=== PATIENT | male | born 1985 | race Caucasian/White ===

== ENCOUNTER 2017-12-30 12:24 | Emergency (ER) | payer MEDICAID ==
[~2017-12-30] VITALS: Ht 185.4 cm; Wt 99.8 kg
[~2017-12-30 12:24] MED LIST: AMOCLA500 PO; ANTIBIOTIC; Bactrim Ds Tab1 EACH PO; CEPH500 PO; CLIN300 PO; CRUTCH4 USE; Guaifenesin Dm118 ML PO; Guaifenesin-Co118 ML PO; HYDACE5 PO; HYDCOR1TOA TOP; IBUP800 PO; Naprosyn500 MG PO; OXYACE5T PO; PROM25 PO; RXCEPH500 PO; RXHYDACE PO; RXSULTRIDS PO; SULTRIDS PO; TRIA80TC TOP; Zithromax250 MG PO
[2017-12-30] MEDS ORDERED: Bactrim Ds Tab1 EACH PO (13:03)
[2017-12-30] MEDS ORDERED: Keflex500 MG PO (13:03)
== END 2017-12-30 13:11 | disposition home or self-care (01) ==
LOC: ER 12:24
DX: L03.115 Cellulitis of right lower limb (principal); F17.200 Nicotine dependence, unspecified, uncomplicated; Z86.14 Personal history of Methicillin resistant Staphylococcus aureus infection
CPT/HCPCS: 99282

== ENCOUNTER 2018-02-22 20:20 | Emergency (ER) | payer OTHER ==
[~2018-02-22] VITALS: Ht 185.4 cm; Wt 99.8 kg
[~2018-02-22 20:20] MED LIST changes: +Keflex500 MG PO
[2018-02-22] MEDS ORDERED: Monodox100 MG PO (20:57)
== END 2018-02-22 21:10 | disposition home or self-care (01) ==
LOC: ER 20:20
DX: L55.1 Sunburn of second degree (principal); L03.116 Cellulitis of left lower limb; L03.115 Cellulitis of right lower limb; F17.210 Nicotine dependence, cigarettes, uncomplicated
CPT/HCPCS: 99282

== ENCOUNTER 2021-06-25 06:49 | Emergency (ER) | payer OTHER ==
[~2021-06-25] VITALS: Ht 185.4 cm; Wt 104.3 kg
[~2021-06-25 06:49] MED LIST changes: +Monodox100 MG PO
== END 2021-06-25 10:25 | disposition home or self-care (01) ==
LOC: ER 06:49
DX: S90.822A Blister (nonthermal), left foot, initial encounter (principal); S90.821A Blister (nonthermal), right foot, initial encounter; F17.210 Nicotine dependence, cigarettes, uncomplicated; X58.XXXA Exposure to other specified factors, initial encounter
CPT/HCPCS: 99283

== ENCOUNTER 2022-12-20 17:46 | Inpatient (IN) | payer OTHER ==
[~2022-12-20] VITALS: Ht 182.9 cm; Wt 105.0 kg
[~2022-12-20 17:46] MED LIST changes: +AZIT250 PO; +CEFD300 PO
[2022-12-20 19:11] LABS: BASOPHILS ABSOLUTE AUTO 0.14 K/mm3 (0.00-0.23); BASOPHILS PERCENT AUTO 1 % (0-2); EOSINOPHILS ABSOLUTE AUTO 1.79 K/mm3 (0.00-0.68); EOSINOPHILS PERCENT AUTO 9 % (0-6); Hematocrit 46.1 % (37.0-53.0); Hemoglobin 15.5 g/dL (13.5-17.5); IMMATURE GRAN ABSOLUTE AUTO 0.16 K/mm3 (0.00-0.10); IMMATURE GRAN PERCENT AUTO 1 % (0-1); LYMPHOCYTES ABSOLUTE AUTO 2.22 K/mm3 (0.84-5.20); LYMPHOCYTES PERCENT AUTO 11 % (21-46); MONOCYTES PERCENT AUTO 7 % (4-13); Mean Corpuscular HGB 27.7 pg (26.0-34.0); Mean Corpuscular HGB Conc 33.6 g/dL (31.5-36.5); Mean Corpuscular Volume 82 fL (80-100); NEUTROPHILS PERCENT AUTO 72 % (41-73); Platelet Count 374 K/mm3 (150-400); RDW Coefficient Variation 14.1 % (11.7-14.2); RDW Standard Deviation 42.1 fL (35.1-46.3); White Blood Cell Count 20.51 K/mm3 (4.00-11.30)
[2022-12-20 19:30] LABS: Albumin, Blood 2.9 g/dL (3.4-5.0); Albumin/Globulin Ratio 0.5 (0.8-1.8); Bilirubin, Total 0.7 mg/dL (0.1-1.0); Bun/Creatinine Ratio 16.3 (12.0-20.0); Calcium, Blood 8.9 mg/dL (8.5-10.1); Creatinine, Blood 1.04 mg/dL (0.60-1.20); Potassium, Blood 3.8 mmol/L (3.5-5.5); Total Protein, Blood 8.9 g/dL (6.4-8.2)
[2022-12-20 20:41] LABS: Anti-Xa UFH, PHA Monitoring <0.10 IU/mL; International Normalized Ratio 1.22; Prothrombin Time Results 12.7 Sec (9.7-11.5)
[2022-12-20 23:00] VITALS: BP 140/84
[2022-12-20 23:15] VITALS: BP 108/71
[2022-12-20 23:30] VITALS: BP 122/86
[2022-12-21] VITALS (13 sets, daily range): BP systolic 106–141; BP diastolic 58–111
[2022-12-21 00:40] LABS: U Cannabinoids Screen DETECTED
[2022-12-21 00:41] LABS: U Amphetamine Screen Not Detected; U Barbituate Screen Not Detected; U Benzodiazapine Screen Not Detected; U Buprenorphine Screen Not Detected; U Cocaine Screen Not Detected; U Methadone Screen Not Detected; U Methamphetamine Screen Not Detected; U Opiates Screen Not Detected; U Oxycodone Screen Not Detected; U Phencyclidine Screen Not Detected; U Propoxyphene Screen Not Detected
--- NOTE | 2022-12-21 02:13 | NUR ---
TRANSFER OF CARE NOTE RECEIVED REPORT FROM ED RN BRITTANY RAMIREZ, PT SHORTLY ARRIVED TO PCU 6 ~2250 YESTERDAY PM. ARRIVED VIA GURNEY, PT WAS ABLE TO STAND PIVOT TO HOSPITAL BED. ARRIVED A/Ox4, COOPERTATIVE WITH CARE AND ANSWERS QUESTIONS APPROPRIATELY. MAINTAINED SPO2 >95% ON RA, INCREASED RR RANGING 24-28 WITH C/O SOB. PT ABLE TO SPEAK IN FULL SENTENCES WITHOUT STOPPING HOWEVER. LS DIM IN THE BASES. CARDIAC LEO, ARRIVED IN ST RANGING 100-110'S WITH NO REPORTS OF CP OR PRESSURE. SBP WAS STABLE RANGING 120-140'S. LEGS NOTED TO BE SWOLLEN BILAT. LEFT LEG RED, TENDER, AND WARM TO THE TOUCH. SEE PICS IN CHART. PT NOTED PAIN TO BE 8-10/10 AND IS DESCRIBED A CONSTANT ACHE. BS PRESEENT WITH ABD SOFT/NONTENDER, NO REPORTS OF N/V/D. WILL CONTINUE TO PROCESS MD ORDERS.
[2022-12-21 02:31] LABS: BASOPHILS ABSOLUTE AUTO 0.17 K/mm3 (0.00-0.23); BASOPHILS PERCENT AUTO 1 % (0-2); EOSINOPHILS ABSOLUTE AUTO 2.84 K/mm3 (0.00-0.68); EOSINOPHILS PERCENT AUTO 14 % (0-6); Hematocrit 37.4 % (37.0-53.0); Hemoglobin 12.8 g/dL (13.5-17.5); IMMATURE GRAN ABSOLUTE AUTO 0.13 K/mm3 (0.00-0.10); IMMATURE GRAN PERCENT AUTO 1 % (0-1); LYMPHOCYTES ABSOLUTE AUTO 2.82 K/mm3 (0.84-5.20); LYMPHOCYTES PERCENT AUTO 14 % (21-46); MONOCYTES ABSOLUTE AUTO 1.27 K/mm3 (0.16-1.47); MONOCYTES PERCENT AUTO 6 % (4-13); Mean Corpuscular HGB 27.8 pg (26.0-34.0); Mean Corpuscular HGB Conc 34.2 g/dL (31.5-36.5); Mean Corpuscular Volume 81 fL (80-100); Mean Platelet Volume 10.1 fL (9.1-12.4); NEUTROPHILS ABSOLUTE AUTO 12.79 K/mm3 (1.96-9.15); NEUTROPHILS PERCENT AUTO 64 % (41-73); Platelet Count 298 K/mm3 (150-400); RDW Standard Deviation 41.5 fL (35.1-46.3); Red Blood Cell Count 4.61 M/mm3 (4.30-5.90); White Blood Cell Count 20.02 K/mm3 (4.00-11.30)
[2022-12-21 03:04] LABS: Bun/Creatinine Ratio 23.2 (12.0-20.0); Calcium, Blood 7.6 mg/dL (8.5-10.1); Creatinine, Blood 0.73 mg/dL (0.60-1.20); Potassium, Blood 3.6 mmol/L (3.5-5.5)
--- NOTE | 2022-12-21 05:53 | NUR ---
SHIFT SUMMARY NO ACUTE CHANGES FROM TRANSFER OF CARE NOTE. SEE NOTE FOR MORE DETAILS. PAIN ADEQUATELY CONTROLLED ORDERED VIA EMAR. NS INFUSING ORDERED. DR. Sadler CONSULTED. NO NEW ORDERS AT THIS TIME, WILL REPORT TO ONCOMING RN. BALBINA GARVIN OF THIS NOTE
--- NOTE | 2022-12-21 10:00 | NUR ---
Dr. Hawkins was passing through the unit, and I stopped him to ask if we should hold the lovenox for possible patient intervention today. He said no, to give the lovenox. Answered his questions about pt's hemodynamic stability, current heart rate, troponin levels, and if the echocardiogram was done. Echo is actually in progress. States he will come by and see the patient later today.
--- NOTE | 2022-12-21 10:07 | NUR ---
RN/ DAY SHIFT SUMMARY MORNING SHIFT REPORT RECIEVED DURING PATIENT GREETING AT BEDSIDE. THE PATIENT WAS THEN ASSESSED WITH NORMAL VITALS AND NO COMPLICATIONS. THE PATIENT IS SLOW TO ANSWER AND THE LOWER LEFT EXTREMITY IS SWOLLEN AND TENDER AT TIME OF ASSESSMENT. THE PATIENT DENIES ANY OTHER ISSUES WITH BREATHING OR CHEST PAIN. THERE ARE MANY SMALL SCABS AND BRUISING SEEN ON THE LOWER EXTREMITIES. THE PATIENT DENIES ANY PAIN AT THIS TIME. THE PATIENT IS ALSO GETTING A ECHO SHORTLY AFTER. WILL CONTINUE TO MONITOR.
--- NOTE | 2022-12-21 17:29 | NUR ---
[facility] IN TO ASSOCIATE CURATOR PATIENT AT THIS TIME
[2022-12-22] VITALS (9 sets, daily range): BP systolic 117–138; BP diastolic 76–95
[2022-12-22 04:01] LABS: BASOPHILS ABSOLUTE AUTO 0.11 K/mm3 (0.00-0.23); BASOPHILS PERCENT AUTO 1 % (0-2); EOSINOPHILS ABSOLUTE AUTO 2.18 K/mm3 (0.00-0.68); EOSINOPHILS PERCENT AUTO 14 % (0-6); Hematocrit 35.5 % (37.0-53.0); Hemoglobin 12.2 g/dL (13.5-17.5); IMMATURE GRAN ABSOLUTE AUTO 0.07 K/mm3 (0.00-0.10); IMMATURE GRAN PERCENT AUTO 1 % (0-1); LYMPHOCYTES ABSOLUTE AUTO 2.63 K/mm3 (0.84-5.20); LYMPHOCYTES PERCENT AUTO 17 % (21-46); MONOCYTES ABSOLUTE AUTO 0.92 K/mm3 (0.16-1.47); MONOCYTES PERCENT AUTO 6 % (4-13); Mean Corpuscular HGB 27.9 pg (26.0-34.0); Mean Corpuscular HGB Conc 34.4 g/dL (31.5-36.5); Mean Corpuscular Volume 81 fL (80-100); Mean Platelet Volume 10.2 fL (9.1-12.4); NEUTROPHILS ABSOLUTE AUTO 9.54 K/mm3 (1.96-9.15); NEUTROPHILS PERCENT AUTO 62 % (41-73); Platelet Count 295 K/mm3 (150-400); RDW Coefficient Variation 14.3 % (11.7-14.2); RDW Standard Deviation 41.9 fL (35.1-46.3); Red Blood Cell Count 4.37 M/mm3 (4.30-5.90); White Blood Cell Count 15.45 K/mm3 (4.00-11.30)
[2022-12-22 04:25] LABS: Bun/Creatinine Ratio 16.7 (12.0-20.0); Calcium, Blood 7.6 mg/dL (8.5-10.1); Creatinine, Blood 0.6 mg/dL (0.60-1.20); Potassium, Blood 4.1 mmol/L (3.5-5.5)
--- NOTE | 2022-12-22 05:28 | NUR ---
SHIFT SUMMARY: Pt slept all night, no complaints of pain. Edema noted in LLE and some scattered bruising on back of calf, unchanged throughout shift. Pulses palpable, popliteal site clean/dry/intact. He desatted while sleeping so he is now on 2L NC. Lungs sound diminished throughout. Voided once. Still on IV fluids, ate dinner last night.
--- NOTE | 2022-12-22 11:10 | NUR ---
Filipe-stasis device and strings were removed on the popliteal space of the left leg. Call from Dr. Hawkins to ask that it be removed; reported to him that it had just been removed and he was pleased. Reported to him that the pt has a large area on the posterior left thigh which is red and itchy. He took the attending hospitalist's number (Dr. Lemus) and said that he would give him a call.
--- NOTE | 2022-12-22 15:37 | NUR ---
RN/ DAY SHIFT SUMMARY THE MORNING SHIFT REPORT WAS RECEIVED ALONG WITH ASSUMPTION OF CARE AT THE PATIENTS BEDSIDE. THE PATIENT WAS THEN ASSESSED AND MEDICATIONS WERE PASSES PRIOR THE PATIENT HAVING A SHOWER. THE FLOWSTASIS WAS THEN REMOVED WITH NO COMPLICATIONS WITH A RASH NOTED AT THE UPPER LEFT THIGH. THE PATIENT COMPLAINED OF ITCHING AND THE PROVIDER WAS CONSULTED AND AN ORDER FOR IV DIPHENHYDRAMINE WAS RECEIVED AND GIVEN WITH THE PATIENT HAVING RELIEF OF THE ITCHING. THE PATIENTS FAMILY HAS ARRIVED AND THE MOTHER WAS GIVEN UPDATES. THE MOTHER THEN DESCUSSED IN MORE DETAIL THE LIVING SITUATION OF THE PATIENT. THE PATIENT HAS BEEN STABLE ON RA AND REPORTS LITTLE TO NO PAIN OR DISCOMFORT AT THIS TIME. WILL CONTINUE TO MONITOR.
[2022-12-23 00:16] VITALS: BP 119/72
[2022-12-23 04:00] VITALS: BP 128/78
--- NOTE | 2022-12-23 05:00 | NUR ---
SHIFT SUMMARY PATIENT IS ALERT AND ORIENTED X4. 02 SATS 95% ON RA, DENIES SOB, LS DIMINISHED IN THE BASES. HR SR 80s. BP STABLE. DENIES CP/PRESSURE. MEDICATED FOR ITCHING PER EMAR. DENIES PAIN IN LEFT LEG, SWELLING UNCHANGED THROUGH THE NIGHT, PULSES INTACT. USES URINAL. INDEPENDENT WITH REPOSITIONING. CALL LIGHT IN REACH.
[2022-12-23] MEDS ORDERED: Acetaminophen325 M1 PO (09:04)
[2022-12-23] MEDS ORDERED: ELIQUIS5 M2 PO (09:05)
[2022-12-23 09:30] VITALS: BP 147/78
--- NOTE | 2022-12-23 10:05 | NUR ---
DISCHARGE NOTE PT AWAKE, ALERT AND APPROPRIATE FOR TEACHING. ALL DISCHARGE INSTRUCTIONS REVIEWED WITH PT INCLUDING MEDICATION LIST, NEW PRESCRIPTION FOR ELIQUIS TO BE PICKED UP AT [facility] TODAY. CONFIRMED WITH FLORENCIO FROM [employer] THAT [facility] WOULD COVER THE PRESCRIPTION COST. INSTRUCTED PT TO CALL [facility] OR ANOTHER OFFICE TO ESTABLISH A PCP. REINFORCED IMPORTANCE OF PCP FOLLOW UP AND NEED FOR CONTINUING PRESCRIPTIONS IN THE FUTURE. VERBAL AND WRITTEN EDUCATION PROVIDED FOR ELIQUIS, DVT AND PE. PT INSTRUCTED TO ELEVATE LLE WHEN RESTING TO REDUCE SWELLING. PT ABLE TO AMBULATE, SP02 94% RA WITH ACTIVITY. NO FURTHER DISCHARGE NEEDS IDENTIFIED, RIDE HOME ARRANGED FOR PT, PT DISCHARGED WITH ALL BELONGINGS.
== END 2022-12-23 10:21 | disposition home or self-care (01) | DRG 270 ==
LOC: ER 17:46 → PCU 22:23
PROVIDERS: Internal Medicine; Nurse Practitioner Acute Care; Student in an Organized Health Care Education/Training Program; ADMIT Internal Medicine
PROC: 06CN3ZZ Extirpation of Matter from Left Femoral Vein, Percutaneous Approach (ICD-10-PCS; principal; 2022-12-21)
DX: I82.412 Acute embolism and thrombosis of left femoral vein (principal); I26.99 Other pulmonary embolism without acute cor pulmonale; J18.9 Pneumonia, unspecified organism; R65.10 Systemic inflammatory response syndrome (SIRS) of non-infectious origin without acute organ dysfunction; J90 Pleural effusion, not elsewhere classified; F17.210 Nicotine dependence, cigarettes, uncomplicated; F15.10 Other stimulant abuse, uncomplicated; I82.462 Acute embolism and thrombosis of left calf muscular vein; I82.432 Acute embolism and thrombosis of left popliteal vein; Z86.14 Personal history of Methicillin resistant Staphylococcus aureus infection; Z79.2 Long term (current) use of antibiotics; Z79.899 Other long term (current) drug therapy
CPT/HCPCS: 36415; 37187; 71046; 71260; 75820; 75825; 76937; 80048; 80053; 82947; 83605; 83880; 84145; 84484; 85025; 85300; 85303; 85306; 85520; 85610; 85730; 87040; 93005; 93010; 93306; 93971; 94760; 96365-59; 96367; 96372-59; 99152; 99153; 99285-25; A9270; C1757; C1769; C1887; C1894; J0692; J1200; J1644; J1650; J2250; J2543; J3010; J3370; J7030; J7050; Q9967

== ENCOUNTER 2023-01-19 12:53 | Emergency (ER) | payer OTHER ==
[~2023-01-19] VITALS: Ht 167.6 cm; Wt 68.0 kg
[~2023-01-19 12:53] MED LIST changes: +Acetaminophen325 M1 PO; +ELIQUIS5 M2 PO
[2023-01-19 13:10] VITALS: BP 138/104
== END 2023-01-19 17:41 | disposition home or self-care (01) ==
LOC: ER 12:53
DX: I82.412 Acute embolism and thrombosis of left femoral vein (principal); I82.461 Acute embolism and thrombosis of right calf muscular vein; I82.811 Embolism and thrombosis of superficial veins of right lower extremity; F17.210 Nicotine dependence, cigarettes, uncomplicated; Z79.01 Long term (current) use of anticoagulants
CPT/HCPCS: 93971; 99283-25; A9270

== ENCOUNTER 2023-03-16 17:36 | Emergency (ER) | payer OTHER ==
[~2023-03-16] VITALS: Ht 182.9 cm; Wt 104.3 kg
[~2023-03-16 17:36] MED LIST changes: +XARELTO20 MG PO
[2023-03-16 18:33] VITALS: BP 138/90
[2023-03-16] MEDS ORDERED: ASPI81CH PO (20:06)
== END 2023-03-16 20:16 | disposition home or self-care (01) ==
LOC: ER 17:36
DX: M79.89 Other specified soft tissue disorders (principal); F17.210 Nicotine dependence, cigarettes, uncomplicated
CPT/HCPCS: 93971; 99283-25; A9270

== ENCOUNTER 2024-03-28 16:32 | Emergency (ER) | payer OTHER ==
[~2024-03-28] VITALS: Ht 182.9 cm; Wt 104.3 kg
[~2024-03-28 16:32] MED LIST changes: +ASPI81CH PO
[2024-03-28 17:28] LABS: BASOPHILS ABSOLUTE AUTO 0.03 K/mm3 (0.00-0.23); BASOPHILS PERCENT AUTO 1 % (0-2); EOSINOPHILS ABSOLUTE AUTO 0.09 K/mm3 (0.00-0.68); EOSINOPHILS PERCENT AUTO 2 % (0-6); Hematocrit 47.8 % (37.0-53.0); Hemoglobin 15.9 g/dL (13.5-17.5); IMMATURE GRAN ABSOLUTE AUTO 0.02 K/mm3 (0.00-0.10); IMMATURE GRAN PERCENT AUTO 0 % (0-1); LYMPHOCYTES ABSOLUTE AUTO 1.27 K/mm3 (0.84-5.20); LYMPHOCYTES PERCENT AUTO 21 % (21-46); MONOCYTES ABSOLUTE AUTO 0.61 K/mm3 (0.16-1.47); MONOCYTES PERCENT AUTO 10 % (4-13); Mean Corpuscular HGB 29.3 pg (26.0-34.0); Mean Corpuscular HGB Conc 33.3 g/dL (31.5-36.5); Mean Corpuscular Volume 88 fL (80-100); NEUTROPHILS ABSOLUTE AUTO 4.08 K/mm3 (1.96-9.15); NEUTROPHILS PERCENT AUTO 67 % (41-73); Platelet Count 236 K/mm3 (150-400); RDW Coefficient Variation 14.9 % (11.7-14.2); RDW Standard Deviation 48.4 fL (35.1-46.3); Red Blood Cell Count 5.42 M/mm3 (4.30-5.90)
[2024-03-28 17:45] LABS: Albumin, Blood 4.1 g/dL (3.4-5.0); Albumin/Globulin Ratio 1.1 (0.8-1.8); Bilirubin, Total 0.5 mg/dL (0.1-1.0); Bun/Creatinine Ratio 14.9 (12.0-20.0); Calcium, Blood 8.8 mg/dL (8.5-10.1); Creatinine, Blood 0.81 mg/dL (0.60-1.20); Globulin, Blood 3.9 g/dL (2.2-4.0); Potassium, Blood 4.7 mmol/L (3.5-5.5)
[2024-03-28 21:22] VITALS: BP 138/70
== END 2024-03-28 21:23 | disposition home or self-care (01) ==
LOC: ER 16:32
PROVIDERS: Physician Assistant
DX: U07.1 COVID-19 (principal); K42.9 Umbilical hernia without obstruction or gangrene; F17.210 Nicotine dependence, cigarettes, uncomplicated; Z79.82 Long term (current) use of aspirin; Z79.899 Other long term (current) drug therapy
CPT/HCPCS: 74177; 80053; 83690; 85025; 99284-25; Q9967

== ENCOUNTER 2024-10-07 08:00 | Day surgery (SDC) | payer OTHER ==
[2024-10-07] VITALS (10 sets, daily range): BP systolic 129–154; BP diastolic 77–95
[~2024-10-07] VITALS: Ht 182.9 cm; Wt 149.0 kg
[~2024-10-07 08:00] MED LIST changes: +CeFAZolin Sodium 3,000 MG in NS 100 ML IV SCH; +Lactated Ringer's 1,000 ML IV SCH
[2024-10-07] MEDS ORDERED: HYDROmorphone HCl/Pf 1MG SYR IV PRN (08:25)
[2024-10-07] MEDS ORDERED: Lactated Ringer's 1,000 ML IV SCH (08:25)
[2024-10-07] MEDS ORDERED: Ondansetron HCl 2 MG / ML 2ML Vial IV PRN (08:25)
[2024-10-07] MEDS ORDERED: Lidocaine HCl 1% 5 ML SYR INJ ONE (08:25)
[2024-10-07] MEDS ORDERED: Bupivacaine 0.5% HCl 5 MG/ML 30MLVIAL ONE (08:27)
[2024-10-07] MEDS ORDERED: Prochlorperazine Edisylate 10 mg Vial IV PRN (08:30)
[2024-10-07] MEDS ORDERED: FentaNYL Citrate 50 MCG/ML 2 ML Injection IV PRN ×3 (08:30)
--- NOTE | 2024-10-07 08:33 | NUR ---
History, Chart, Medications and Allergies reviewed before start of procedure. Patient confirms NPO status and agrees with scheduled surgery. Patient States Post-Procedure ride home has been arranged with brother, Wilder.
[2024-10-07] MEDS ORDERED: CeFAZolin Sodium 3,000 MG VIAL ONE (08:51)
[2024-10-07] MEDS ORDERED: Famotidine 10 MG/ML 2ML Vial IV ONE (09:05)
[2024-10-07] MEDS ORDERED: propofoL 40 ML IV ONE (09:15)
[2024-10-07] MEDS ORDERED: SuccINYLCHOLINE Chloride 100 MG/5 ML 5MLSYR ONE ×2 (09:16→09:27)
[2024-10-07] MEDS ORDERED: Dexamethasone Sod Phos 10 MG/ML 1ML VIAL ONE (09:16)
[2024-10-07] MEDS ORDERED: Lidocaine HCl 2% 20 ML MDV ONE (09:16)
[2024-10-07] MEDS ORDERED: Ondansetron HCl 2 MG / ML 2ML Vial ONE (09:16)
[2024-10-07] MEDS ORDERED: FentaNYL Citrate 50 MCG/ML 2 ML Injection ONE (09:16)
[2024-10-07] MEDS ORDERED: Rocuronium Bromide 10 MG/ML 5ML Injection IV ONE ×2 (09:17→09:46)
[2024-10-07] MEDS ORDERED: Ketorolac Tromethamine 30mg Vial ONE (09:17)
--- NOTE | 2024-10-07 09:38 | NUR ---
10/07/24 0938 Sudha Beltran NOTED: SMALL OPEN AREA TO PTS UMBILICUS, DR ALVAREZ AWARE
[2024-10-07] MEDS ORDERED: Labetalol HCL 5 MG/ML 4ML Injection (Single Dose) ONE (10:36)
[2024-10-07] MEDS ORDERED: Glycopyrrolate 0.2 MG/ML 5ML VIAL ONE (10:40)
[2024-10-07] MEDS ORDERED: Neostigmine Methylsulfate 5MG/5ML SYR ONE (10:40)
[2024-10-07] MEDS ORDERED: HYDROcodone 5-APAP 325 TAB PO PRN (11:05)
--- NOTE | 2024-10-07 12:13 | NUR ---
DISCHARGE PT A&OX4/VSS/RA/CHACHA PO/C&DBSFOL COMM/DRESSED SELF, IV DC'D, DC INS PROVIDED WITH PT AND BRO/CUTTING AND PRINTING MACHINE OPERATOR, LEFT VIA WC WITH ALL PERSONAL POSSESSIONS TO GO HOME WITH BRO/CUTTING AND PRINTING MACHINE OPERATOR.
== END 2024-10-07 23:00 | disposition home or self-care (01) ==
LOC: ORSCMMR 08:00 → ORD 09:00 → ORSCMMR 23:00
PROVIDERS: Surgery
PROC: 0WUF0JZ Supplement Abdominal Wall with Synthetic Substitute, Open Approach (ICD-10-PCS; principal; 2024-10-07 09:00)
DX: K42.0 Umbilical hernia with obstruction, without gangrene (principal); K21.9 Gastro-esophageal reflux disease without esophagitis; Z86.718 Personal history of other venous thrombosis and embolism; Z79.01 Long term (current) use of anticoagulants; F17.210 Nicotine dependence, cigarettes, uncomplicated; E66.01 Morbid (severe) obesity due to excess calories; Z68.41 Body mass index [BMI] 40.0-44.9, adult
CPT/HCPCS: A9270; C1781; J0330; J0690; J1100; J1885; J2405; J2704; J2710; J3010; J7120

== ENCOUNTER 2025-06-12 12:17 | Emergency (ER) | payer OTHER ==
[~2025-06-12] VITALS: Ht 182.9 cm; Wt 145.2 kg
[~2025-06-12 12:17] MED LIST changes: -CeFAZolin Sodium 3,000 MG in NS 100 ML IV SCH; -Lactated Ringer's 1,000 ML IV SCH
[2025-06-12 13:00] VITALS: BP 162/95
[2025-06-12 14:04] LABS: Influenza A, PCR NEGATIVE (NEGATIVE); Influenza B, PCR NEGATIVE (NEGATIVE); Resp Syncytial Virus, PCR NEGATIVE (NEGATIVE); SARS-Cov-2 (COVID-19) PCR, MMC NEGATIVE (NEGATIVE)
[2025-06-12] MEDS ORDERED: Ondansetron 4 MG SoluTab SL ONE (16:35)
[2025-06-12] MEDS ORDERED: RX Prepack 2 Tabs Ondansetron ODT 4MG UD ONE (16:35)
[2025-06-12] MEDS ORDERED: ONDA4 PO (16:36)
[2025-06-12] MEDS ORDERED: IMODIUM A-D2 M1 PO (16:36)
== END 2025-06-12 16:40 | disposition home or self-care (01) ==
LOC: ER 12:17
PROVIDERS: Emergency Medicine
DX: J06.9 Acute upper respiratory infection, unspecified (principal); Z79.01 Long term (current) use of anticoagulants; Z87.891 Personal history of nicotine dependence
CPT/HCPCS: 71045; 87637; 99283-25; A9270